=== PATIENT | male | born 1995 | race Caucasian/White ===

== ENCOUNTER 2016-11-02 11:02 | Emergency (ER) | payer MEDICARE, MEDICAID ==
[~2016-11-02] VITALS: Ht 165.1 cm; Wt 58.0 kg
[2016-11-02 11:04] VITALS: BP 120/60; PULSE 79; RESP 20; TEMP 98.1; O2SAT 97
[2016-11-02] MEDS ORDERED: LEXA10TA PO (11:34)
[2016-11-02] MEDS ORDERED: KETOROLAC TROMETHAMINE 60 MG/2 ML (IM) VIAL IM ONE (11:45)
[2016-11-02] MEDS ORDERED: ROBA500T PO (11:53)
[2016-11-02] MEDS ORDERED: IBUP800T23 PO (11:53)
--- NOTE | 2016-11-02 11:53 | PD ---
HPI Chief Complaint: Back/ Neck Pain or Injury Time Seen by Provider: 11:20 Travel History International Travel<30 days: No Contact w/Intl Traveler<30days: No Traveled to known affect area: No History of Present Illness HPI 21-year-old male presents emergency department for evaluation of left low back pain since this morning. Patient reports the pain as aching/spasming. Pain is reproduced with movement and flexion, relieved with rest. Patient denies fever , chills, urinary symptoms, incontinence, saddle anesthesia, numbness/tingling/ weakness in the extremity. Patient is no history of kidney stones. Severity 4 out of 10 pain scale. PFSH Past Medical History Anxiety: Yes Depression: Yes Past Surgical History Surgical History: No Previous Surgery Social History Alcohol Use: No Tobacco Use: Yes Substance Use: No Allergies-Medications (Allergen,Severity, Reaction): Coded Allergies: No Known Allergies (Unverified , 11/02/16) Reported Meds & Prescriptions Reported Meds & Active Scripts Active Robaxin (Methocarbamol) 500 Mg Tab 500 Mg PO TID PRN Ibuprofen 800 Mg Tab 800 Mg PO Q8H PRN Reported Lexapro (Escitalopram Oxalate) 10 Mg Tab 10 Mg PO DAILY Review of Systems Except as stated in HPI: all other systems reviewed are Neg Genitourinary: No: Dysuria Physical Exam Narrative GENERAL: Well-nourished, well-developed patient. SKIN: Focused skin assessment warm/dry. HEAD: Normocephalic. EYES: No scleral icterus. No injection or drainage. NECK: Supple, trachea midline. No JVD or lymphadenopathy. CARDIOVASCULAR: Regular rate and rhythm without murmurs, gallops, or rubs. RESPIRATORY: Breath sounds equal bilaterally. No accessory muscle use. GASTROINTESTINAL: Abdomen soft, non-tender, nondistended. MUSCULOSKELETAL: No cyanosis, or edema. 5 out of 5 strength in lower extremities. Normal sensation. Dorsiflex and plantarflex intact. BACK: Without obvious deformity. No CVA tenderness. Left lumbar/thoracic paraspinous muscle tenderness. No midline spine tenderness. Data Data Last Documented VS Vital Signs Date Time Temp Pulse Resp B/P Pulse Ox O2 Delivery O2 Flow Rate FiO2 11/02/16 11:04 98.1 79 20 120/60 97 Room Air Orders Ketorolac Inj (Toradol Inj) (11/02/16 11:45) [facility] Medical Decision Making Medical Screen Exam Complete: Yes Emergency Medical Condition: Yes Differential Diagnosis Lumbar strain, thoracic strain, unlikely nephrolithiasis Narrative Course 21-year-old male presents emergency department for evaluation of left low back pain since this morning. Patient reports the pain as aching/spasming. Pain is reproduced with movement and flexion, relieved with rest. Physical exam is reassuring. Patient is tender in the thoracic lumbar paraspinous muscle regions. No CVA tenderness. Patient be treated for low back strain. Return precautions discussed. Patient verbalizes understanding and agrees to plan. Diagnosis Primary Impression: Lumbar strain Qualified Code: S39.012A - Lumbar strain, initial encounter Referrals: Primary Care Physician Additional Instructions: Take medications as prescribed. Avoid heavy lifting or strenuous activity. Follow-up with her primary care doctor. Return to the emergency department if he developed new or worsening symptoms Scripts Methocarbamol (Robaxin)500 Mg [id number] Mg PO TID PRN (MUSCLE SPASM) #12 TAB Prov:Cielo Figueredo 11/02/16 Ibuprofen 800 Mg [id number] Mg PO Q8H PRN (Pain/Inflammation) #30 TAB Prov:Cielo Figueredo 11/02/16 Disposition: 01 DISCHARGE HOME Condition: Stable Cielo Figueredo Nov 02, 2016 11:53
== END 2016-11-02 12:18 | disposition home or self-care (01) ==
LOC: NEPK 11:02
DX: S39.012A Strain of muscle, fascia and tendon of lower back, initial encounter (principal); F41.9 Anxiety disorder, unspecified; F32.9 Major depressive disorder, single episode, unspecified; Z79.899 Other long term (current) drug therapy; Z72.0 Tobacco use; X58.XXXA Exposure to other specified factors, initial encounter
CPT/HCPCS: 96372; 99284; J1885